=== PATIENT | male | born 1970 | race Caucasian/White ===

== ENCOUNTER 2016-04-01 15:49 | Emergency (ER) | payer SELFPAY ==
[2016-04-01 15:53] VITALS: BP 128/85
--- NOTE | 2016-04-01 17:09 | RAD ---
INDICATION: Left thumb laceration COMPARISON: None TECHNIQUE: 3 views of the left thumb were obtained. FINDINGS: The bones are normal alignment. Joint spaces appear maintained. No fracture is seen. IMPRESSION: No acute fracture or dislocation. If the patient's symptoms persist, follow-up imaging is recommended.
--- NOTE | 2016-04-01 17:11 | ED ---
Skin Complaint - HPI Summary HPI Summary: 46 M presents with laceration to left thumb. He was installing yg when the knife bounced off and hit his left thumb. The bleeding is not controlled upon arrival. He denies any foreign body. He denies any numbness or tingling. Tetanus was 5 years ago. He is right handed. - History of Current Complaint Pain Intensity: 8 <Deepika Chen - Last Filed: 04/01/16 20:39> <Hernando Jones - Last Filed: 04/01/16 21:01> - History of Current Complaint Chief Complaint: EDExtremityUpper Time Seen by Provider: 04/01/16 16:19 Stated Complaint: THUMB LAC - Allergy/Home Medications Allergies/Adverse Reactions: Allergies Allergy/AdvReac Type Severity Reaction Status Date / Time Hydrocodone [From Vicodin] Allergy Severe Itching Verified 04/01/16 15:53 Oxycodone Allergy Severe SEVERE Verified 04/01/16 15:53 [From Oxycodone ITCHINESS W/Acetaminophen] Aspirin Allergy Intermediate GI Upset Verified 04/01/16 15:53 Ibuprofen Allergy Intermediate GI Upset Verified 04/01/16 15:53 PMH/Surg Hx/FS Hx/Imm Hx Endocrine/Hematology History: Denies: Hx Anticoagulant Therapy, Hx Diabetes, Hx Thyroid Disease Cardiovascular History: Denies: Hx Hypertension, Hx Pacemaker/ICD Respiratory History: Denies: Hx Asthma, Hx Chronic Obstructive Pulmonary Disease (COPD) GI History: Reports: Other GI Disorders - transint episodes of n/v abd pain unk cause History: Denies: Hx Renal Disease Sensory History: Reports: Hx Contacts or Glasses - INSTRUCTED TO WEAR GLASSES DAY OF SURGERY Denies: Hx Hearing Aid Opthamlomology History: Reports: Hx Contacts or Glasses - INSTRUCTED TO WEAR GLASSES DAY OF SURGERY Neurological History: Denies: Hx Dementia, Hx Seizures Psychiatric History: Reports: Hx Anxiety - HX OF Denies: Hx Eating Disorder, Hx Panic Disorder, Hx Substance Abuse - Surgical History Surgery Procedure, Year, and Place: surgeries to neck for herniated disc, r hand for carpal tunnel surgery, left shoulder surgery- [facility], ear surgery for bone tumor removal- [place](NO IMPLANT) had appendectomy 03/2013, [facility] kneesurgery ACL; RIGHT SHOULDER 03/05 & 04/05 - [facility] Hx Anesthesia Reactions: No - Immunization History Date of Tetanus Vaccine: unknown Date of Influenza Vaccine: no Infectious Disease History: No Infectious Disease History: Denies: Hx Hepatitis, Hx Human Immunodeficiency Virus (HIV), History Other Infectious Disease, Traveled Outside the [place] in Last 30 Days - Family History Known Family History: Positive: None - Social History Alcohol Use: None Alcohol Amount: RANDOM Substance Use Type: Reports: None Smoking Status (MU): Never Smoked Tobacco <Deepika Chen - Last Filed: 04/01/16 20:39> Review of Systems Negative: Fever Negative: Chest Pain Negative: Shortness Of Breath Positive: Other - laceration of left thumb All Other Systems Reviewed And Are Negative: Yes <Deepika Chen - Last Filed: 04/01/16 20:39> Physical Exam Triage Information Reviewed: Yes Vital Signs On Initial Exam: Initial Vitals Temp Pulse Resp BP Pulse Ox 97.6 F 83 17 128/85 99 04/01/16 15:50 04/01/16 15:50 04/01/16 15:50 04/01/16 15:50 04/01/16 15:50 Vital Signs Reviewed: Yes Appearance: Positive: Well-Appearing Skin: Positive: Warm, Dry - 5 cm laceration of distal tip of left thumb that cross part of nail but does not involve nail bed with flap like apperance Head/Face: Positive: Normal Head/Face Inspection Eyes: Positive: Normal, Conjunctiva Clear Respiratory/Lung Sounds: Positive: Clear to Auscultation, Breath Sounds Present Cardiovascular: Positive: Normal, RRR <Deepika Chen - Last Filed: 04/01/16 20:39> Vital Signs On Initial Exam: Initial Vitals Temp Pulse Resp BP Pulse Ox 97.6 F 83 17 128/85 99 04/01/16 15:50 04/01/16 15:50 04/01/16 15:50 04/01/16 15:50 04/01/16 15:50 <Hernando Jones - Last Filed: 04/01/16 21:01> Procedures - Laceration/Wound Repair 1 Location: Other - left thumb Description: Irregular Anesthesia: Digital, 1.0% Length, Depth and Shape: 5 cm length flap like by 1 cm depth Betadine Prep?: Yes Irrigated w/ Saline (ccs): 1,000 Laceration/Wound Explored: clean Closure: Single Layer Suture Type: Prolene - 4-0 Number of Sutures: 7 Layer Closure?: No Sterile Dressing Applied?: No <Deepika Chen - Last Filed: 04/01/16 20:39> Diagnostics - Vital Signs Vital Signs Temp Pulse Resp BP Pulse Ox 04/01/16 15:50 97.6 F 83 17 128/85 99 - Radiology thumb Xray Interpretation: No Acute Changes - IMPRESSION: No acute fracture or dislocation. If the patient's symptoms persist, follow-up imaging is recommended. Radiology Interpretation Completed By: Radiologist <Deepika Chen - Last Filed: 04/01/16 20:39> - Vital Signs Vital Signs Temp Pulse Resp BP Pulse Ox 04/01/16 15:50 97.6 F 83 17 128/85 99 <Hernando Jones - Last Filed: 04/01/16 21:01> Course/Dx - Course Course Of Treatment: 46 M presents with left thumb laceration today, tetanus up to date, xray no ramandeep involvement, placed 7 sutures prolene 4-0 and placed pressure dressing, placed on antibiotics due to extend of laceration and because occurred while yg, patient requesting pain medication has take tramadol in past will give a couple due to extent of injury, patient agrees with plan - Differential Diagnoses - Skin Complaint Differential Diagnoses: Other - laceration, abrasion, avulsion, <Deepika Chen - Last Filed: 04/01/16 20:39> - Course Assessment/Plan: I was available for consultation. This patient was seen by mid level provider. The patient was not presented, seen, or examined by me. WR. <Hernando Jones - Last Filed: 04/01/16 21:01> - Diagnoses Provider Diagnoses: Laceration of thumb Discharge <Deepika Chen - Last Filed: 04/01/16 20:39> <Hernando Jones - Last Filed: 04/01/16 21:01> - Discharge Plan Condition: Stable Disposition: HOME Prescriptions: Cephalexin CAP* [Keflex CAP*] 500 mg PO BID #20 cap traMADol TAB* [Ultram*] 25 mg PO Q8H PRN #4 tab MDD 4 PRN Reason: Pain Patient Education Materials: Laceration (ED) Referrals: Johny Fermin MD [Primary Care Provider] - Additional Instructions: Take Tylenol or ibuprofen for pain every 6 hours Take antibiotic twice a day for 10 days Keep area clean and dry for 48 hours Return to ED or primary in 10-14 days to have sutures removed Return to ED if develop signs of infection such as fever, spreading redness, or pus. Images - Images Hands: 1 - flap like laceration <Deepika Chen - Last Filed: 04/01/16 20:39>
== END 2016-04-01 18:06 | disposition home or self-care (01) ==
LOC: ED 15:49
DX: S61.012A Laceration without foreign body of left thumb without damage to nail, initial encounter (principal); W45.8XXA Other foreign body or object entering through skin, initial encounter; Y93.9 Activity, unspecified; Y92.9 Unspecified place or not applicable; Y99.9 Unspecified external cause status
CPT/HCPCS: 12002; 99282

== ENCOUNTER 2016-04-03 07:05 | Emergency (ER) | payer MEDICAID, OTHER ==
[2016-04-03 07:15] VITALS: BP 151/81
--- NOTE | 2016-04-03 15:16 | UC ---
pasquale Morocho Timothy, scribed for Lillian Bell DO on 04/03/16 at 0724 . Respiratory Complaint HPI - HPI Summary HPI Summary: John Block is a 46 yo male presenting to [facility] with chest pressure and 6/10 burning sore throat since 04/01/16 pm. He states his sore throat is more painful with cough and deep breath, and that the pain is localized between his shoulder blades. He also had myalgia yesterday, and states his voice is hoarse. He denies any other Sx, including SOB or pain in his left arm. He states he does not have pain when swallowing. He states he has similar Sx approximately once per year. His MHx includes SBO, herniated disk in neck 2004, and anxiety. He is allergic to vicodin and percocet. - History of Current Complaint Stated Complaint: CHEST CONGESTION Time Seen by Provider: 04/03/16 07:19 Hx Obtained From: Patient Onset/Duration: Gradual Onset, Lasting Days, Still Present Timing: Constant Severity Initially: Moderate Severity Currently: Moderate Pain Intensity: 6 Pain Scale Used: 0-10 Numeric Character: Cough: Productive Aggravating Factors: Deep Breaths Alleviating Factors: Nothing Associated Signs And Symptoms: Positive: Dyspnea, Hoarseness - Allergies/Home Medications Allergies/Adverse Reactions: Allergies Allergy/AdvReac Type Severity Reaction Status Date / Time Hydrocodone [From Vicodin] Allergy Severe Itching Verified 04/03/16 07:09 Oxycodone Allergy Severe SEVERE Verified 04/03/16 07:09 [From Oxycodone ITCHINESS W/Acetaminophen] Aspirin Allergy Intermediate GI Upset Verified 04/03/16 07:09 Ibuprofen Allergy Intermediate GI Upset Verified 04/03/16 07:09 PMH/Surg Hx/FS Hx/Imm Hx Previously Healthy: Yes Endocrine History Of: Denies: Diabetes, Thyroid Disease Cardiovascular History Of: Denies: Cardiac Disorders, Hypertension, Pacemaker/ICD Respiratory History Of: Denies: COPD, Asthma GI/ History Of: Denies: Gastroesophageal Reflux, Renal Disease Neurological History Of: Denies: CVA, Dementia, Seizures Psychological History Of: Reports: Anxiety - HX OF Other History Of: Negative For: Anticoagulant Therapy - Surgical History Surgical History: Yes Surgery Procedure, Year, and Place: surgeries to neck for herniated disc, r hand for carpal tunnel surgery, left shoulder surgery- [facility], ear surgery for bone tumor removal- [place](NO IMPLANT) had appendectomy 03/2013, [facility] kneesurgery ACL; RIGHT SHOULDER 03/05 & 04/05 - [facility] - Family History Known Family History: Positive: Cardiac Disease Negative: Hypertension, Diabetes - Social History Occupation: Employed Full-time - construction/landscaping Alcohol Use: Occasionally Alcohol Amount: RANDOM Substance Use Type: None Smoking Status (MU): Never Smoked Tobacco - Immunization History Most Recent Influenza Vaccination: none Review of Systems Constitutional: Negative Skin: Negative Eyes: Negative ENT: Sore Throat Respiratory: Cough, Other - dyspnea Cardiovascular: Chest Pain Gastrointestinal: Negative Genitourinary: Negative Motor: Negative Neurovascular: Negative Musculoskeletal: Myalgia Neurological: Negative Psychological: Negative All Other Systems Reviewed And Are Negative: Yes Physical Exam Triage Information Reviewed: Yes Appearance: Well-Appearing, No Pain Distress, Well-Nourished Vital Signs: Initial Vital Signs Temp 99.0 F 04/03/16 07:10 Pulse 90 04/03/16 07:10 Resp 16 04/03/16 07:10 BP 151/81 04/03/16 07:10 Pulse Ox 95 04/03/16 07:10 Vital Signs Reviewed: Yes Eyes: Positive: Conjunctiva Clear. Negative: Discharge ENT: Positive: Hearing grossly normal, Pharyngeal erythema, TMs normal, Muffled/ hoarse voice Neck: Positive: Supple, Nontender Respiratory: Positive: Lungs clear, Normal breath sounds, No respiratory distress, No accessory muscle use, Other: - prolonged expiration Cardiovascular: Positive: RRR, No Murmur Musculoskeletal Exam: Normal Neurological: Positive: Alert, Muscle Tone Normal Psychological Exam: Normal Psychological: Positive: Age Appropriate Behavior Skin Exam: Normal - warm, dry, normal color UC Diagnostic Evaluation - Laboratory O2 Sat by Pulse Oximetry: 95 - EKG Cardiac Rate: NL - 0732 - NSR @ 85 BPM, no ST changes. No significant change since 09/29/2006 ST Segment: Normal Re-Evaluation - Re-Evaluation First Eval Re-Evaluation Time: 07:58 Change: Unchanged Comment: Pt is informed of EKG, and that we are waiting for return call from cardiology to consult about EKG resdults. Second Eval Re-Evaluation Time: 09:07 Change: Unchanged Comment: PT was informed of results of consults, and will be discharged. Respiratory Course/Dx - Course Course Of Treatment: John Block is a 46 yo male presenting to [facility] with sore throat and CP with cough. After clinical examination and discussion with Dr. Martel and Dr. Trejo regarding EKG results, he will be discharged home with viral infection and bronchospasm, with appropriate instructions. - Differential Dx/Diagnosis Differential Diagnosis/HQI/PQRI: Lower Resp Infection, Other - viral infection, bronchospasm Provider Diagnoses: viral infection, bronchospasm - Physician Notification/Consults Discussed Patient Care With: 0855 - Dr. Martel (emergency medicine) - Discussed Pt condition, did not see anything abnormal in EKG. 0902 - Dr. Trejo (emergency medicine) - Discussed Pt condition, recommended further analysis of previous EKG. Discharge - Discharge Plan Condition: Stable Disposition: HOME Prescriptions: Albuterol HFA INHALER* [Ventolin HFA Inhaler*] 2 puff INH Q4H PRN #1 mdi PRN Reason: Sob/Wheezing Benzonatate CAP* [Tessalon CAP*] 100 mg PO TID PRN #30 cap PRN Reason: Cough guaiFENesin ER TAB [Mucinex*] 600 mg PO BID PRN #1 box PRN Reason: Cough guaiFENesin/CODIEN 100MG-10MG* [Robitussin AC 100Mg-10Mg*] 5 - 10 ml PO Q4H PRN #100 udc MDD 10ml PRN Reason: Cough predniSONE TAB* [Deltasone TAB*] 40 mg PO DAILY #10 tab Patient Education Materials: Acute Bronchitis (ED), Bronchospasm (ED) Referrals: Johny Fermin MD [Primary Care Provider] - 1 Week Additional Instructions: CORTICOSTEROID MEDICATION: You have been given a medicine of the cortisone class. This medication is used to control inflammation or allergy. It is usually only given for a short period of time, until the acute process subsides. There are usually no side effects from short-term use of cortisone-like medications. Some persons feel an increased sense of well-being and are not sleepy at bedtime. Long-term use of cortisone medications is best avoided, unless required for a severe condition. If your condition does not remit, or relapses after the course of corticosteroid medication, you should consult your physician. Contact the physician if you develop lightheadedness, black or tarry stools , swelling of the legs, or significant rapid change in weight. INHALED BRONCHODILATORS: You have received a prescription for an inhaled bronchodilator -- a medication which stimulates the airways in the lung to dilate. This improves the flow of air in asthma, bronchitis, and emphysema. These medicines have some similarity to adrenaline, and can cause similar side effects: shakiness, racing heart, and a sense of nervousness. These side effects decrease with time. Contact your doctor if these side effects are severe. Do not over-use the medicine. Too-frequent use of the inhaler may make it ineffective. Call your doctor if the inhaler is not controlling your symptoms at the prescribed doses. COUGH-SUPPRESSANT & EXPECTORANT MEDICATION: You are to use a cough medication as needed for relief of symptoms. This medicine is a combination of an expectorant (to make the mucous thinner and more easily "coughed up") and a cough suppressant (to reduce the frequency of coughing). The cough-suppressant medicine is related to narcotics. You may experience mild nausea and sleepiness. Some patients who are very sensitive to narcotics may have stomach pain from this medicine. Taking the medicine with food reduces these side effects. Do not drive or work with machinery until you know how this medicine affects you. The expectorant should have no side effects. Iodine-containing expectorants (such as organidin) should not be taken by persons with active thyroid disease unless approved by your doctor. Call the doctor if you develop shortness of breath, hives, rash, itching, lightheadedness, or severe nausea and vomiting. EXPECTORANT MEDICATION: An expectorant medicine has been prescribed. This type of drug makes mucous thinner, helping the sinuses, nose, and bronchial tubes to remain free of pus and mucous. Expectorants make a cough less severe and more comfortable, and help infected sinuses drain. In general, antihistamines defeat the purpose of the expectorant by making mucous thicker. They should be avoided unless specifically recommended by your physician. TESSALON PERLES: You have received a prescription for Tessalon Perles (benzonatate). This is a non-narcotic medicine for relief of cough. It usually works in about 15- 20 minutes and lasts around four hours. Tessalon Perles should be swallowed. They should not be chewed or dissolved in the mouth (this can produce temporary numbing of the mouth and choking can occur). If you develop any adverse effects such as wheezing, shortness of breath, hives, rash, itching, or lightheadedness, please return at once. Please follow up with your primary care physician within seven days regarding your visit to urgent care today. Return to urgent care or the emergency department with any new or recurring symptoms. The documentation as recorded by the pasquale gunter Timothy accurately reflects the service I personally performed and the decisions made by , Lillian Bell DO.
== END 2016-04-03 09:12 | disposition home or self-care (01) ==
LOC: UCEAST 07:05
DX: B34.9 Viral infection, unspecified (principal); J98.01 Acute bronchospasm; Z88.5 Allergy status to narcotic agent; Z88.6 Allergy status to analgesic agent
CPT/HCPCS: 93005; 99212; G0463

== ENCOUNTER 2016-08-01 09:52 | Emergency (ER) | payer OTHER ==
[2016-08-01 09:59] VITALS: BP 127/86
--- NOTE | 2016-08-01 10:55 | RAD ---
Indication: History of LEFT shoulder dislocation with self reduction. Previous dislocations. Previous surgeries. Comparison: October 05, 2004 Technique: Internal rotation AP, external rotation Grashey, scapular Y, axillary views LEFT shoulder Report: Normal acromioclavicular and glenohumeral joint alignment. Negative for fracture. Severe glenohumeral joint osteophytosis, joint space narrowing, and subchondral sclerosis. Negative for stigmata of calcific tendinopathy. Unremarkable soft tissue contours. IMPRESSION: Negative for dislocation or fracture. Severe glenohumeral joint osteoarthritis grossly new compared with the 2004 exam.
--- NOTE | 2016-08-01 12:15 | UC ---
Ronny Morocho Alok, scribed for Bry Saeed MD on 08/01/16 at 1131 . Shoulder Pain HPI - HPI Summary HPI Summary: 46M presents to the [facility] with left shoulder pain. Pt states he dislocated his left shoulder about one hour ago while moving a cinderblock at work. Pt states he was able to pop his shoulder back to its socket but still notes left shoulder soreness worse with movement. Pt states he has had his shoulder dislocated several times before, first when he was 16 and last in 2010. - History of Current Complaint Chief Complaint: UCUpperExtremity Stated Complaint: SHOULDER INJURY Time Seen by Provider: 08/01/16 11:23 Hx Obtained From: Patient Onset/Duration: Lasting Hours, Still Present Timing: Constant Severity Initially: Moderate Severity Currently: Moderate Location Of Pain: Is Discrete @ - left shoulder Pain Intensity: 5 Pain Scale Used: 0-10 Numeric Character: Aching Aggravating Factor(s): Movement Alleviating Factor(s): Nothing Associated Signs And Symptoms: Positive: Negative - Allergies/Home Medications Allergies/Adverse Reactions: Allergies Allergy/AdvReac Type Severity Reaction Status Date / Time Hydrocodone [From Vicodin] Allergy Severe Itching Verified 08/01/16 09:59 Oxycodone Allergy Severe SEVERE Verified 08/01/16 09:59 [From Oxycodone ITCHINESS W/Acetaminophen] Aspirin Allergy Intermediate GI Upset Verified 08/01/16 09:59 Ibuprofen Allergy Intermediate GI Upset Verified 08/01/16 09:59 Home Medications: Home Medications NK [No Home Medications Reported] 08/01/16 [History Confirmed 08/01/16] PMH/Surg Hx/FS Hx/Imm Hx Other History Of: Negative For: Anticoagulant Therapy - Surgical History Surgical History: Yes Surgery Procedure, Year, and Place: surgeries to neck for herniated disc, r hand for carpal tunnel surgery, left shoulder surgery- [facility], ear surgery for bone tumor removal- [place](NO IMPLANT) had appendectomy 03/2013, [facility] kneesurgery ACL; RIGHT SHOULDER 03/05 & 04/05 - [facility] - Family History Known Family History: Positive: Cardiac Disease Negative: Hypertension, Diabetes - Social History Occupation: Employed Full-time Alcohol Use: Occasionally Alcohol Amount: RANDOM Substance Use Type: None Smoking Status (MU): Never Smoked Tobacco - Immunization History Most Recent Influenza Vaccination: none Review of Systems Constitutional: Negative Musculoskeletal: Other: - left shoulder pain All Other Systems Reviewed And Are Negative: Yes Physical Exam Triage Information Reviewed: Yes Appearance: Well-Appearing, No Pain Distress Vital Signs: Initial Vital Signs Temp 98.4 F 08/01/16 09:55 Pulse 97 08/01/16 09:55 Resp 16 08/01/16 09:55 BP 127/86 08/01/16 09:55 Pulse Ox 98 08/01/16 09:55 Vital Signs Reviewed: Yes Eyes: Positive: Other: - EOMI, SARABJIT ENT Exam: Normal Neck: Positive: Supple, Nontender Respiratory: Positive: Lungs clear, Normal breath sounds Cardiovascular: Positive: RRR Abdomen Description: Positive: Nontender, Soft Bowel Sounds: Positive: Present Musculoskeletal: Positive: Other: - Left shoulder joit tenderness. No clavicle tenderness. Good field crop farming supervisor strength. Good wrist and elbow motion. Good positive radial pulses. No delayed capillary refill distally. No neurological deficit. Forward flection right 180 degrees, left 80 degrees. Abduction right 120 degrees , left 45 degrees. Internal rotation right T11, left was unable to. Extention left unable. Neurological Exam: Normal Neurological: Positive: Other: - Alert & Oriented x3. Sensory/motor intact Psychological: Positive: Other: - Affect/mood appropriate Skin: Positive: Other - warm, dry, color reflects adequate perfusion Diagnostics - Radiology Shoulder XRAY Xray Interpretation: Positive (See Comments) - IMPRESSION: Negative for dislocation or fracture. Severe glenohumeral joint osteoarthritis grossly new compared with the 2005 exam. Radiology Interpretation Completed By: Radiologist Shoulder Course/Dx - Course Course Of Treatment: Pt medications reviewed this visit. PATIENT WILL F/U WITH ORTHOPEDICS. - Differential Dx/Diagnosis Provider Diagnoses: SHOULDER DISLOCATION WITH SELF REDUCTION Discharge - Discharge Plan Condition: Stable Disposition: HOME Patient Education Materials: Shoulder Dislocation (ED) Referrals: [facility] [Outside] Triston Catalan MD [Medical Doctor] - Johny Fermin MD [Primary Care Provider] - Additional Instructions: FOLLOW UP WITH ORTHOPEDICS. GET RECHECKED FOR ANY WORSENING OF YOUR CONDITION OR QUESTIONS OR CONCERNS. The documentation as recorded by the Ronny gunter Alok accurately reflects the service I personally performed and the decisions made by , Bry Saeed MD.
== END 2016-08-01 11:45 | disposition home or self-care (01) ==
LOC: UCEAST 09:52
DX: S43.005A Unspecified dislocation of left shoulder joint, initial encounter (principal); X50.0XXA Overexertion from strenuous movement or load, initial encounter; Y93.89 Activity, other specified; Y92.89 Other specified places as the place of occurrence of the external cause; Z88.5 Allergy status to narcotic agent
CPT/HCPCS: 99211; G0463

== ENCOUNTER 2017-01-31 08:05 | Emergency (ER) | payer SELFPAY ==
[2017-01-31 08:22] VITALS: BP 118/84
--- NOTE | 2017-01-31 08:58 | UC ---
Back Pain HPI - HPI Summary HPI Summary: LIFTING A HEAVY BOX AT WORK THIS MORNING WHEN HE FELT SUDDEN PAIN IN MID/UPPER BACK. AGGRAVATED BY MOVEMENT. NO NUMBNESS OR TINGLING. - History of Current Complaint Chief Complaint: UCBackPain Stated Complaint: UPPER BACK PAIN Time Seen by Provider: 01/31/17 08:37 Hx Obtained From: Patient Onset/Duration: Sudden Onset, Lasting Hours Timing: Constant Severity Initially: Moderate Severity Currently: Moderate Pain Intensity: 5 Pain Scale Used: 0-10 Numeric Back Pain: Is Discrete @ - MID BACK Character: Spasmodic Aggravating Factor(s): Movement Alleviating Factor(s): Rest Associated Signs And Symptoms: Positive: Negative - Allergies/Home Medications Allergies/Adverse Reactions: Allergies Allergy/AdvReac Type Severity Reaction Status Date / Time Hydrocodone [From Vicodin] Allergy Severe Itching Verified 08/01/16 09:59 Oxycodone Allergy Severe SEVERE Verified 08/01/16 09:59 [From Oxycodone ITCHINESS W/Acetaminophen] Aspirin Allergy Intermediate GI Upset Verified 08/01/16 09:59 Ibuprofen Allergy Intermediate GI Upset Verified 08/01/16 09:59 PMH/Surg Hx/FS Hx/Imm Hx GI/ History: Kidney Stones Other History Of: Negative For: Anticoagulant Therapy - Surgical History Surgical History: Yes Surgery Procedure, Year, and Place: surgeries to neck for herniated disc, r hand for carpal tunnel surgery, left shoulder surgery- [facility], ear surgery for bone tumor removal- [place](NO IMPLANT) had appendectomy 03/2013, [facility] kneesurgery ACL; RIGHT SHOULDER 03/05 & 04/05 - [facility] - Family History Known Family History: Positive: Cardiac Disease Negative: Hypertension, Diabetes - Social History Alcohol Use: Occasionally Alcohol Amount: RANDOM Substance Use Type: None Smoking Status (MU): Never Smoked Tobacco - Immunization History Most Recent Influenza Vaccination: none Review of Systems Constitutional: Negative Skin: Negative Respiratory: Negative Cardiovascular: Negative Gastrointestinal: Negative Motor: Decreased ROM Musculoskeletal: Arthralgia, Decreased ROM, Myalgia All Other Systems Reviewed And Are Negative: Yes Physical Exam Triage Information Reviewed: Yes Appearance: Well-Appearing, No Pain Distress, Well-Nourished Vital Signs: Initial Vital Signs Temp 98.9 F 01/31/17 08:18 Pulse 63 01/31/17 08:18 Resp 16 01/31/17 08:18 BP 118/84 01/31/17 08:18 Pulse Ox 100 01/31/17 08:18 Vital Signs Reviewed: Yes Eyes: Positive: Conjunctiva Clear ENT: Positive: Hearing grossly normal Neck: Positive: Supple Respiratory: Positive: No respiratory distress, No accessory muscle use Cardiovascular: Positive: Pulses Normal Abdomen Description: Positive: Soft Musculoskeletal: Positive: No Edema, ROM Limited @ - BACK Neurological: Positive: Alert Psychological: Positive: Age Appropriate Behavior Skin: Negative: rashes Back Pain Course/Dx - Differential Dx/Diagnosis Provider Diagnoses: MID BACK STRAIN Discharge - Discharge Plan Condition: Stable Disposition: HOME Prescriptions: Cyclobenzaprine TAB* [Flexeril TAB*] 10 mg PO TID PRN #30 tab PRN Reason: Pain Naproxen [Naproxen EC] 500 mg PO BID PRN #30 tab PRN Reason: Pain traMADol TAB* [Ultram*] 50 mg PO Q6HR PRN #12 tab MDD 4 PRN Reason: Pain Patient Education Materials: Thoracic Back Strain (ED) Forms: *Work Release Referrals: Johny Fermin MD [Primary Care Provider] - If Needed Additional Instructions: BE SURE TO GO THROUGH SLOW RANGE OF MOTION AND STRETCHING EXERCISES DAILY YOU ARE ABLE TO PREVENT STIFFENING UP AND MAKING THE DISCOMFORT WORSE.
== END 2017-01-31 09:15 | disposition home or self-care (01) ==
LOC: UCEAST 08:05
DX: S29.012A Strain of muscle and tendon of back wall of thorax, initial encounter (principal); X50.0XXA Overexertion from strenuous movement or load, initial encounter; Y92.89 Other specified places as the place of occurrence of the external cause; Z88.5 Allergy status to narcotic agent; Z88.6 Allergy status to analgesic agent
CPT/HCPCS: 99212; G0463

== ENCOUNTER 2018-03-13 08:27 | Emergency (ER) | payer OTHER ==
[2018-03-13 08:50] VITALS: BP 163/103
[2018-03-13] MEDS ORDERED: Acetaminophen TAB* 325 MG PO ONE (09:25)
--- NOTE | 2018-03-13 09:39 | UC ---
Elbow Pain - HPI Summary HPI Summary: ABOUT AN HOUR [employer] PT WENT TO GET OUT OF HIS TRUCK WHEN HE SLIPPED ON THE ICE AND HIS FEET WENT OUT FROM UNDER HIM. RIGHT ARM WAS CAUGHT ON THE CAR SEAT AND HIS ELBOW HYPEREXTENDED. HAS PAIN AND UNABLE TO MOVE AT THE ELBOW. DENIES ANY SHOULDER PAIN. - History of Current Complaint Chief Complaint: UCUpperExtremity Stated Complaint: WC R ARM INJURY Time Seen by Provider: 03/13/18 09:22 Hx Obtained From: Patient Onset/Duration: Hours Severity Currently: Severe Pain Intensity: 10 Pain Scale Used: 0-10 Numeric Location Of Pain: Is Discrete @ - RIGHT ELBOW Character: Sharp Aggravating Factor(s): Movement Alleviating Factor(s): Ice Associated Signs And Symptoms: Negative: Swelling, Redness, Bruising - Allergies/Home Medications Allergies/Adverse Reactions: Allergies Allergy/AdvReac Type Severity Reaction Status Date / Time aspirin Allergy GI Upset Verified 03/13/18 08:42 hydrocodone Allergy Itching Verified 03/13/18 08:42 ibuprofen Allergy GI Upset Verified 03/13/18 08:42 oxycodone Allergy Itching Verified 03/13/18 08:42 PMH/Surg Hx/FS Hx/Imm Hx GI/ History: Kidney Stones Other History Of: Negative For: Anticoagulant Therapy - Surgical History Surgical History: Yes Surgery Procedure, Year, and Place: surgeries to neck for herniated disc, r hand for carpal tunnel surgery, left shoulder surgery- [facility], ear surgery for bone tumor removal- [place](NO IMPLANT) had appendectomy 03/2013, [facility] kneesurgery ACL; RIGHT SHOULDER 03/05 & 04/05 - [facility] - Family History Known Family History: Positive: Cardiac Disease Negative: Hypertension, Diabetes - Social History Alcohol Use: Occasionally Alcohol Amount: RANDOM Substance Use Type: None Smoking Status (MU): Never Smoked Tobacco - Immunization History Most Recent Influenza Vaccination: none Review of Systems All Other Systems Reviewed And Are Negative: Yes Constitutional: Positive: Negative Skin: Positive: Negative Respiratory: Positive: Negative Cardiovascular: Positive: Negative Gastrointestinal: Positive: Negative Musculoskeletal: Positive: Arthralgia, Decreased ROM Physical Exam Triage Information Reviewed: Yes Appearance: Well-Nourished, Pain Distress - MODERATE/SEVERE Vital Signs: Initial Vital Signs Temp 99.2 F 03/13/18 08:43 Pulse 115 03/13/18 08:43 Resp 18 03/13/18 08:43 BP 163/103 03/13/18 08:43 Pulse Ox 97 03/13/18 08:43 Vital Signs Reviewed: Yes Eyes: Positive: Conjunctiva Clear ENT: Positive: Hearing grossly normal Neck: Positive: Supple Respiratory: Positive: No respiratory distress, No accessory muscle use Cardiovascular: Positive: Pulses Normal Abdomen Description: Positive: Soft Musculoskeletal: Positive: No Edema, ROM Limited @ - RIGHT ELBOW, Other: - TTP DIFFUSELY OVER RIGHT ELBOW Neurological: Positive: Alert Psychological: Positive: Age Appropriate Behavior Skin: Negative: Rashes Diagnostics - Radiology RIGHT ELBOW XRAY Radiology Interpretation Completed By: Radiologist Summary of Radiographic Findings: 1. Negative for fat pad displacement to indicate effusion, fracture, or malalignment. Medial soft tissue swelling noted. Elbow Pain Course/Dx - Differential Dx/Diagnosis Provider Diagnosis: Sprain of right elbow Discharge - Sign-Out/Discharge Documenting (check all that apply): Patient Departure All imaging exams completed and their final reports reviewed: Yes - Discharge Plan Condition: Stable Disposition: HOME Patient Education Materials: Elbow Sprain (ED) Forms: *Work Release Referrals: Johny Fermin MD [Primary Care Provider] - If Needed Additional Instructions: XRAY OF YOUR RIGHT ELBOW: Negative for fat pad displacement to indicate effusion, fracture, or malalignment. Medial soft tissue swelling noted. XRAY TODAY NEGATIVE FOR FRACTURE OR DISLOCATION. YOUR SYMPTOMS SHOULD IMPROVE SIGNIFICANTLY OVER THE NEXT 1-2 WEEKS. IF YOU DO NOT IMPROVE EXPECTED FOLLOW- UP WITH YOUR PCP. YOU MAY BENEFIT FROM REPEAT/MORE ADVANCED IMAGING AT THAT TIME. OTC TYLENOL NEEDED FOR DISCOMFORT. REST, ICE, COMPRESS, ELEVATE. PABLO WRAP AND SLING NEEDED FOR SYMPTOM RELIEF. BE SURE TO GO THROUGH SLOW RANGE OF MOTION AND STRETCHING EXERCISES DAILY YOU ARE ABLE TO PREVENT STIFFENING UP AND MAKING THE DISCOMFORT WORSE. - Billing Disposition and Condition Condition: STABLE Disposition: Home
--- NOTE | 2018-03-14 09:32 | UC ---
- Progress Note Progress Note: Patient continues to have pain not relieved by tylenol. I called in tylenol #3. Course/Dx - Diagnoses Provider Diagnoses: Sprain of right elbow Discharge - Sign-Out/Discharge Documenting (check all that apply): Patient Departure All imaging exams completed and their final reports reviewed: Yes - Discharge Plan Condition: Stable Disposition: HOME Prescriptions: Acetaminop/Codeine 30 MG TAB* [Tylenol/Codeine 30 MG TAB*] 1 tab PO Q6H PRN #30 tab MDD 4 PRN Reason: Pain Patient Education Materials: Elbow Sprain (ED) Forms: *Work Release Referrals: Johny Fermin MD [Primary Care Provider] - If Needed Additional Instructions: XRAY OF YOUR RIGHT ELBOW: Negative for fat pad displacement to indicate effusion, fracture, or malalignment. Medial soft tissue swelling noted. XRAY TODAY NEGATIVE FOR FRACTURE OR DISLOCATION. YOUR SYMPTOMS SHOULD IMPROVE SIGNIFICANTLY OVER THE NEXT 1-2 WEEKS. IF YOU DO NOT IMPROVE EXPECTED FOLLOW- UP WITH YOUR PCP. YOU MAY BENEFIT FROM REPEAT/MORE ADVANCED IMAGING AT THAT TIME. OTC TYLENOL NEEDED FOR DISCOMFORT. REST, ICE, COMPRESS, ELEVATE. PABLO WRAP AND SLING NEEDED FOR SYMPTOM RELIEF. BE SURE TO GO THROUGH SLOW RANGE OF MOTION AND STRETCHING EXERCISES DAILY YOU ARE ABLE TO PREVENT STIFFENING UP AND MAKING THE DISCOMFORT WORSE. - Billing Disposition and Condition Condition: STABLE Disposition: Home
== END 2018-03-13 10:28 | disposition home or self-care (01) ==
LOC: UCEAST 08:27
DX: S53.401A Unspecified sprain of right elbow, initial encounter (principal); W01.198A Fall on same level from slipping, tripping and stumbling with subsequent striking against other object, initial encounter; Y92.9 Unspecified place or not applicable; Z88.6 Allergy status to analgesic agent; Z88.5 Allergy status to narcotic agent
CPT/HCPCS: 99212; A9270-GY; G0463

== ENCOUNTER 2018-08-20 14:34 | Emergency (ER) | payer OTHER ==
[2018-08-20 14:45] VITALS: BP 135/90
--- NOTE | 2018-08-20 14:56 | UC ---
Eye Complaint HPI - HPI Summary HPI Summary: enlarging cystic mass right lower eyelid x mos now red and more noticeable no d/c, photophobia or visual complaints - History of Current Complaint Chief Complaint: UCEye Stated Complaint: RT EYE ISSUE Time Seen by Provider: 08/20/18 14:46 Hx Obtained From: Patient Onset/Duration: Gradual Onset, Lasting Weeks Timing: Constant Severity Initially: Mild Severity Currently: Moderate Pain Intensity: 0 Pain Scale Used: 0-10 Numeric Location of Injury: Eye Lid (lower) Character: Dull Aggravating Factor(s): Nothing Alleviating Factor(s): Nothing Associated Signs And Symptoms: Positive: Swelling Eyes: 1 - red/swollen - Risk Factors Penetrating Injury Risk Factor: Negative Globe Rupture Risk Factors: Negative Acute Glaucoma Risk Factors: Negative Optic Artery Occlusion Risk Factors: Negative - Allergies/Home Medications Allergies/Adverse Reactions: Allergies Allergy/AdvReac Type Severity Reaction Status Date / Time aspirin Allergy GI Upset Verified 08/20/18 14:45 hydrocodone Allergy Itching Verified 08/20/18 14:45 ibuprofen Allergy GI Upset Verified 08/20/18 14:45 oxycodone Allergy Itching Verified 08/20/18 14:45 PMH/Surg Hx/FS Hx/Imm Hx Previously Healthy: Yes Other History Of: Negative For: Anticoagulant Therapy - Surgical History Surgical History: Yes Surgery Procedure, Year, and Place: surgeries to neck for herniated disc, r hand for carpal tunnel surgery, left shoulder surgery- [facility], ear surgery for bone tumor removal- [place](NO IMPLANT) had appendectomy 03/2013, [facility] kneesurgery ACL; RIGHT SHOULDER 03/05 & 04/05 - [facility] - Family History Known Family History: Positive: Cardiac Disease Negative: Hypertension, Diabetes - Social History Alcohol Use: Weekly Alcohol Amount: w/e Substance Use Type: None Smoking Status (MU): Never Smoked Tobacco - Immunization History Most Recent Influenza Vaccination: none Review of Systems All Other Systems Reviewed And Are Negative: Yes Constitutional: Positive: Negative Skin: Positive: Negative Eyes: Positive: Negative ENT: Positive: Negative Respiratory: Positive: Negative Cardiovascular: Positive: Negative Gastrointestinal: Positive: Negative Genitourinary: Positive: Negative Motor: Positive: Negative Neurovascular: Positive: Negative Musculoskeletal: Positive: Negative Neurological: Positive: Negative Psychological: Positive: Negative Physical Exam Triage Information Reviewed: Yes Appearance: Well-Appearing, No Pain Distress, Well-Nourished Vital Signs: Initial Vital Signs Temp 97.6 F 08/20/18 14:40 Pulse 93 08/20/18 14:40 Resp 12 08/20/18 14:40 BP 135/90 08/20/18 14:40 Pulse Ox 98 08/20/18 14:40 Eye Exam: Normal Eyes: Positive: Conjunctiva Clear, Other: - large right lower lid chalazion ENT: Positive: Hearing grossly normal Dental Exam: Normal Neck: Positive: Supple, Nontender, No Lymphadenopathy Respiratory: Positive: Lungs clear, Normal breath sounds, No respiratory distress Cardiovascular: Positive: RRR, No Murmur Musculoskeletal: Positive: ROM Intact, No Edema Neurological: Positive: Alert Psychological Exam: Normal Skin Exam: Normal Eye Complaint Course/Dx - Differential Dx/Diagnosis Provider Diagnosis: Chalazion right lower eyelid, Elevated BP without diagnosis of hypertension Discharge - Sign-Out/Discharge Documenting (check all that apply): Patient Departure All imaging exams completed and their final reports reviewed: No Studies - Discharge Plan Condition: Stable Disposition: HOME Prescriptions: Cephalexin CAP* [Keflex CAP*] 500 mg PO QID #28 cap Patient Education Materials: Chalazion (ED) Referrals: Wade Davis MD [Medical Doctor] - As Soon As Possible Elvis Bell MD [Medical Doctor] - As Soon As Possible Johny Fermin MD [Primary Care Provider] - (BP recheck in 2-12 weeks) Additional Instructions: warm compresses these sometime clear up with just warm compresses and antibiotics BUT I think yours will need to be surgically removed - Billing Disposition and Condition Condition: STABLE Disposition: Home
== END 2018-08-20 15:10 | disposition home or self-care (01) ==
LOC: UCEAST 14:34
DX: H00.12 Chalazion right lower eyelid (principal); R03.0 Elevated blood-pressure reading, without diagnosis of hypertension; Z88.5 Allergy status to narcotic agent
CPT/HCPCS: 99212; G0463

== ENCOUNTER 2020-08-04 10:11 | Observation (INO) ==
[2020-08-04] MEDS ORDERED: Ondansetron 4 mg VIAL 2 MG/ML 2 ml VIAL IV ONE ×2 (11:12→13:32)
[2020-08-04] MEDS ORDERED: NS 0.9% 1000 ml BAG 1,000 ML IV ONE (11:12)
[2020-08-04] MEDS ORDERED: Morphine 4 MG/ML VIAL (1 ml) IV ONE ×2 (11:12→12:43)
[2020-08-04] MEDS ORDERED: Famotidine IV 10 MG/ML 2 ml VIAL (20 mg) IV SLOW PU ONE (11:14)
[2020-08-04] MEDS ORDERED: NS 0.9% 1000 ml BAG 1,000 ML IV SCH (12:15)
[2020-08-04 12:24] LABS: ABS Lymphocytes 0.9 10^3/ul (1.0-4.8); ABS Monocytes 0.5 10^3/ul (0-0.8); ABS Neutrophils 14.4 10^3/ul (1.5-7.7); Hematocrit 47 % (42-52); Hemoglobin 15.8 g/dL (14.0-18.0); Lymphocyte % 5.6 %; Mean Corpuscular HGB Conc 34 g/dL (31-36); Mean Corpuscular Hemoglobin 29 pg (27-31); Mean Corpuscular Volume 85 fL (80-94); Mean Platelet Volume 7.1 fL (7.4-10.4); Platelet Count 342 10^3/uL (150-450); Red Blood Count 5.48 10^6 /uL (4.18-5.48); Red Cell Distribution Width 14 % (10-15); White Blood Count 15.8 10^3/uL (3.5-10.8)
[2020-08-04 12:40] LABS: ALT 26 U/L (7-52); AST 23 U/L (13-39); Albumin 4.8 g/dL (3.2-5.2); Albumin/Globulin Ratio 1.5 (1-3); Alkaline Phosphatase 88 U/L (35-149); Anion Gap 8 mmol/L (2-11); Blood Urea Nitrogen 17 mg/dL (6-24); CO2 Carbon Dioxide 27 mmol/L (22-32); Calcium 10.1 mg/dL (8.6-10.3); Chloride 103 mmol/L (101-111); EGFR African American 135.5 (>60); Globulin 3.1 g/dL (2-4); Glucose 125 mg/dL (70-100); Lipase < 10 U/L (11.0-82.0); Magnesium 2.2 mg/dL (1.9-2.7); Sodium 138 mmol/L (135-145); Total Protein 7.9 g/dL (6.4-8.9)
[2020-08-04] MEDS ORDERED: Iohexol 300 (CONTRAST) 10 ML SDV IV ONE (13:01)
[2020-08-04 15:17] LABS: Urine Appearance Clear; Urine Bilirubin Negative (Negative); Urine Blood Negative (Negative); Urine Color Yellow; Urine Glucose Negative (Negative); Urine Ketones Negative (Negative); Urine Nitrite Negative (Negative); Urine Protein Negative (Negative); Urine Urobilinogen Negative (Negative)
[2020-08-04] MEDS ORDERED: Metoclopramide 5 MG/ML VIAL (10 mg) IV SLOW PU ONE (15:56)
[2020-08-04] MEDS ORDERED: HYDROmorphone 1 MG/1 ML SYRINGE IV SLOW PU ONE (15:56)
[2020-08-04 17:07] LABS: C Reactive Protein 13.97 mg/L (<8.01)
[2020-08-04] MEDS ORDERED: Ondansetron 4 mg VIAL 2 MG/ML 2 ml VIAL IV PRN (17:10)
[2020-08-04 18:11] LABS: Erythrocyte Sed Rate 7 mm/Hr (0-19)
[2020-08-04] MEDS: HYDROmorphone 0.5 MG/0.5 ML SYRINGE IV SLOW PU PRN ×2 (19:55→23:27)
[2020-08-04] MEDS: NS 0.9% 1000 ml BAG 1,000 ML IV SCH (20:09)
[2020-08-05] MEDS: NS 0.9% 1000 ml BAG 1,000 ML IV SCH (05:50)
[2020-08-05] MEDS: HYDROmorphone 0.5 MG/0.5 ML SYRINGE IV SLOW PU PRN (06:29)
[2020-08-05 11:41] VITALS: BP 145/99
[2020-08-05 12:34] LABS: Calcium 9.3 mg/dL (8.6-10.3); Potassium 3.9 mmol/L (3.5-5.0)
[2020-08-05 12:38] LABS: ABS Lymphocytes 1.3 10^3/ul (1.0-4.8); ABS Monocytes 0.7 10^3/ul (0-0.8); ABS Neutrophils 9.6 10^3/ul (1.5-7.7); Hematocrit 44 % (42-52); Hemoglobin 14.8 g/dL (14.0-18.0); Lymphocyte % 11.2 %; Mean Corpuscular HGB Conc 34 g/dL (31-36); Mean Corpuscular Hemoglobin 29 pg (27-31); Mean Corpuscular Volume 86 fL (80-94); Platelet Count 286 10^3/uL (150-450); Red Blood Count 5.09 10^6 /uL (4.18-5.48); Red Cell Distribution Width 13 % (10-15); White Blood Count 11.6 10^3/uL (3.5-10.8)
[2020-08-05 12:40] LABS: EGFR African American 183.1 (>60); EGFR Non-African American 151.3 (>60)
== END 2020-08-05 12:49 | disposition home or self-care (01) ==
LOC: MED 10:11 → ED 10:11 → MED 19:46
PROVIDERS: ADMIT Pediatrics; ATTEND Internal Medicine